=== PATIENT | male | born 1995 | race Caucasian/White ===

== ENCOUNTER 2023-01-20 17:35 | Emergency (ER) | payer OTHER ==
[~2023-01-20] VITALS: Ht 182.9 cm; Wt 65.9 kg
[2023-01-20 18:54] VITALS: BP 131/82; PULSE 66; RESP 14; TEMP 98; O2SAT 100
== END 2023-01-20 20:45 | disposition home or self-care (01) ==
LOC: EDBD 17:36 → ER 17:36
DX: S62.396A Other fracture of fifth metacarpal bone, right hand, initial encounter for closed fracture (principal); W26.8XXA Contact with other sharp object(s), not elsewhere classified, initial encounter; Y93.89 Activity, other specified; Y92.89 Other specified places as the place of occurrence of the external cause; Y99.8 Other external cause status
CPT/HCPCS: 29125; 73130; 99283; A4565; A6446; A6449